=== PATIENT | female | born 1965 | race Caucasian/White ===

== ENCOUNTER 2021-06-19 13:50 | Emergency (ER) | payer SELFPAY ==
[~2021-06-19] VITALS: Ht 165.1 cm; Wt 88.5 kg
[~2021-06-19 13:50] MED LIST: IBUPROFEN600 MG PO; SOMA350 MG PO; SYNTHROID50 MCG PO; TYLENOL325 MG PO
[2021-06-19] MEDS ORDERED: TROSPIUM CHLORI20 MG PO (15:09)
[2021-06-19] MEDS ORDERED: ONDANSETRON ODT8 MG PO (15:09)
[2021-06-19] MEDS ORDERED: LOSARTAN POTASS25 MG PO (15:10)
== END 2021-06-19 20:19 | disposition home or self-care (01) ==
LOC: ED 13:50
DX: U07.1 COVID-19 (principal); Z23 Encounter for immunization; Z88.8 Allergy status to other drugs, medicaments and biological substances; Z79.890 Hormone replacement therapy; Z79.899 Other long term (current) drug therapy
CPT/HCPCS: 80053; 85025; 99284; J1885; J7030; Q0244